=== PATIENT | female | born 1995 | race Caucasian/White ===

== ENCOUNTER 2018-06-19 23:56 | Emergency (ER) | payer SELFPAY ==
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
[2018-06-20] MEDS ORDERED: IOPAMIDOL 76% 75 ML INFUS BTL 75 ML ONE (00:33)
[2018-06-20] MEDS ORDERED: NS(*) 0.9% 50 ML BAG 50 ML ONE (00:34)
[2018-06-20 01:21] LABS: INR 1.03
[2018-06-20 01:29] LABS: PLATELET COUNT, AUTOMATED 273 K/uL (150-450)
[2018-06-20 02:12] VITALS: BP 114/79
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
== END 2018-06-20 03:30 | disposition home or self-care (01) ==
LOC: ER 06-20 00:19
DX: M54.2 Cervicalgia (principal); Y04.8XXA Assault by other bodily force, initial encounter
CPT/HCPCS: 70498; 81001; 84703; 85025; 85610; 85730; 87088; 99284; J7050; Q9967; 82040; 82247; 82310; 82374; 82435; 82565; 82947; 84075; 84132; 84155; 84295; 84450; 84460; 84520